=== PATIENT | male | born 1950 | race Caucasian/White ===

== ENCOUNTER 2023-10-28 12:49 | Day surgery (SDC) | payer OTHER, SELFPAY ==
[2023-10-21 07:23] VITALS: BMI 35.2
[2023-10-28] VITALS (13 sets, daily range): BP systolic 113–176; BP diastolic 62–98; PULSE 65–89; RESP 12–17; TEMP 35.9–36.7; O2SAT 93–99; BMI 35.2
--- NOTE | 2023-10-28 | DI.RAD.S_ITS ---
PROCEDURE: XR HIP W PEL IF DONE RT 2V INDICATIONS: POST OP TECHNIQUE: 2 views of the hip were acquired. COMPARISON: [facility], CR, XR HIP W PEL IF DONE RT 2V, 10/28/2023, 16:28. FINDINGS: Bones: Expected appearance of the right hip arthroplasty. Moderate left hip arthrosis also seen. Soft tissues: Vascular calcifications. Postoperative changes. IMPRESSION: Expected postoperative appearance of the right hip arthroplasty. Dictated by: Vick Adam M.D. on 10/28/2023 at 19:33 Approved by: Vick Adam M.D. on 10/28/2023 at 19:34
--- NOTE | 2023-10-28 | DI.RAD.S_ITS ---
PROCEDURE: XR HIP W PEL IF DONE LT 2V INDICATIONS: TOTAL TECHNIQUE: 3 views of the hip were acquired. COMPARISON: [facility], CR, XR PELVIS WITH LATERAL HIP RIGHT, 08/20/2023, 14:59. FINDINGS: Bones: Hip arthroplasty appears to be in appropriate position. Soft tissues: No suspicious calcifications. IMPRESSION: Intraoperative images obtained for hip arthroplasty which appears to be in appropriate position. Please see operative note for full details. Dictated by: Vick Adam M.D. on 10/28/2023 at 18:31 Approved by: Vick Adam M.D. on 10/28/2023 at 18:32
[2023-10-28] MEDS: LACTATED RINGERS 1,000 ML 42 ML IV ×3 (13:52→17:41)
[2023-10-28] MEDS: FAMOTIDINE 20 MG/2 ML VIAL IV (14:20)
[2023-10-28] MEDS: ACETAMINOPHEN 325 MG TABLET 975 MG PO (14:20)
--- NOTE | 2023-10-28 15:05 | PM.PREOP ---
Pre-operative Note Interval Note History & Physical reviewed/Exam performed by Physician: Yes Changes to H&P: No
--- NOTE | 2023-10-28 16:10 | SUR.OPER ---
Supine on padded [place] table with bilateral legs secured in padded positioning boots and suspended in positioning spars, operative leg in traction per surgeon. Head on pillow. EULA ARMS SECURED on padded armboard <90 degrees abduction. Padded perineal post in place per surgeon. CONFIRMED BY DR. LEUNG.
[2023-10-28] MEDS: ALBUMIN HUMAN 12.5 GM/250 ML VIAL IV (16:45)
[2023-10-28] MEDS: ROPIVACAINE/EPI/CLONIDINE/KET 50 ML SYRINGE INJ (16:47)
[2023-10-28] MEDS: TRANEXAMIC ACID 1,000 MG VIAL 2000 MG INJ (16:48)
--- NOTE | 2023-10-28 18:21 | P.OP_ITS ---
Operative Date/Time/Diagnoses Date of procedure: 10/28/23 Pre-op diagnosis: Right hip osteoarthritis Post-op diagnosis: same Procedure & Clinicians Procedure: Right total hip arthroplasty Same procedure as scheduled: Yes Surgeon: Andrea Chavez Children'S Entertainer: Alessandra Mercado Anesthesia Type: Spinal, Sedation and Local Operative Notes Estimated Blood Loss (mL): 500 Procedure in detail: Right Uncemented Direct Anterior Total Hip Arthroplasty: Implants: Right Depuy Total Hip Arthroplasty: * Depuy [place] Gription size 62 cup? * Depuy Actis femoral stem size 9 high offset? * 36 mm +12 ceramic femoral head? Procedure Summary: This 73-year-old male is a muscular 260 lb. His hip exposure was challenging because of his muscular body habitus which necessitated a conjoined tendon release for femoral exposure. I had templated him for a size 64 cup and achieved a good pinch fit with a 61 mm Reamer. I inserted a 62 cup which had a good pinch fit and did not require screws for fixation. While working on the femur I initially placed size 7 broach, which was 1 less than my templated size of 8. As I had been 1 size under on my cup I felt that this was likely accurate and began the trialing process with a standard offset neck and a +5 head. I was physically unable to keep the hip reduced. I could get the head into the socket and it would immediately dislocate unless I internally rotated it to 45?. I obtained x-rays with the hip in this internally rotated position and leg length was approximately appropriate although the lesser trochanter was not visible in the internally rotated position. The broach appeared fluoroscopically appropriate for the canal. Presuming that the inability to reduce the hip was caused by some sort of version issue on the femur I returned to the broaching position. Because of the anterior to posterior fit of the Actis broaches, I felt that achieving maximal fit with the femoral canal would optimize my ability to achieve anatomic version by matching the version of the [place] femur. I therefore removed the size 7 broach, removed bone laterally around the trochanter to ensure there was no impingement on the shoulder of the broach, upsized the broach to a size 8. The size 8 broach sat proud to the point where I had sunk the size 7 broach. I repeated the trialing process with a high offset head and a +8.5 head. With this construct I now was able to keep the hip reduced. I had instability with a 45 degree drop test however. I therefore upsized to a +12 head which removed this instability. At that point in time the hip was stable with 90 ? of external rotation. I returned to the broaching position and noted that there was rotational instability of the size 8 broach within the canal so I upsized to a size 9 broach. This sat slightly proud to the area where I had initially calcar planed with the size 7 broach, in a similar position to where the size 8 broach had been. I placed a 9 high offset stem and a +12 head and reduced the hip. It was stable with a 45 degree drop test, 100 ? of external rotation, and was very slightly long when measuring on an AP fluoroscopic image with a long metal bar to limit any sort of fluoroscopic distortion. The hip had started only 1 mm short and I had discussed with the patient that it was possible I would slightly lengthen his operative leg because of this minimal preoperative limb length discrepancy. Canal fill was appropriate on AP and lateral fluoroscopic images. Procedure in Detail: This patient was seen preoperatively and evaluated for hip pain which was ref ractory to numerous nonoperative treatment modalities. Their hip pain correlated with radiographic changes demonstrating significant degeneration in the hip joint. The risks and benefits of continued nonoperative management versus operative management were discussed at length and all of the patient?s questions were answered. Additional educational materials providing further details beyond our discussion in clinic were provided via a publicly available patient education video which included the incidence of medical complications associated with total hip arthroplasty, reasons for revision following total hip arthroplasty, and patient satisfaction rates following total hip arthroplasty. That video can be accessed at [email or web address] . With this understanding of the risks inherent to the procedure, the patient elected to move forward with operative management. Following preoperative optimization, the patient was scheduled for surgery. The patient was met in the preoperative holding area the day of the procedure and all questions were answered. The patient?s nares were swabbed with betadine in order to decolonize them from MRSA. Informed consent was signed and the operative limb was marked with indelible ink.? The patient was brought back to the operating room where anesthesia was induced. The patient was transferred to the [place] table and all bony prominences were padded. The operative site was prepped and draped in the usual sterile fashion. Prior to incision, tranexamic acid and cefazolin were administered. Operative templating images were displayed demonstrating the anticipated implant sizes and correct operative extremity. A timeout procedure was performed verifying the patient?s identity, medical comorbidities, allergies, relevant medications, anesthesia type and the surgical plan. All present were in agreement. The assistance of a physician assistant real estate manager was required for positioning, room setup, soft tissue retraction and wound closure. Without this assistance, the procedure would have been significantly more challenging and time consuming.?? A direct anterior approach to the hip was utilized. This was performed with a longitudinal incision through a Heuter interval. The incision was planned 2 cm distal and 2 cm lateral to the ASIS extending towards the lateral patella, in line with the muscle body of the TFL. Following incision, the subcutaneous tissue was dissected while taking care to avoid injury to the lateral femoral cutaneous nerve. The fascia overlying the TFL was identified by dissecting off the overlying fat and identifying perforating vessels to the TFL. The TFL fascia was incised and dissected away from the medial border of the TFL. A cobra retractor was placed over the superior femoral neck between the abductors and the hip capsule and used to reflect the TFL laterally. A [place] self-retainer was then placed in the distal aspect of the wound between the TFL and the rectus femoris. This was tensioned to open up the direct anterior interval and the lateral circumflex vessels were identified and coagulated using electrocautery. The floor of the TFL fascia was incised, exposing the pericapsular fat overlying the hip capsule. A second cobra retractor was placed on the inferior femoral neck. A double-bent soft tissue retractor was placed on the anterior wall of the acetabulum and used to tension the reflected head of rectus femoris, which was then released in order to limit soft tissue tension. A capsulotomy was made in the midline of the anterior hip capsule in line with the femoral neck ending at the vastus tubercle. The double-bent retractor was removed in order to limit the amount of time that a soft tissue retractor remained on the anterior wall and protect the femoral nerve. Tag stitches were placed in the superior and inferior leaflets of the hip capsule. An [place] soft tissue retractor was introduced over the tag stitches and tensioned in the interval between the rectus femoris and the TFL in order to retract and protect those muscles. The cobra retractors were replaced intracapsularly, with one over the superior neck in the pocket created by the base of the greater trochanter and the other on the femoral head. The capsulotomy was extended laterally to the base of the greater trochanter and medially to the lesser trochanter. This required externally rotating the hip. Once the lesser trochanter had been identified, a neck cut was planned according to measurements from preoperative templating. A ruler was cut at the length measured between the superior aspect of the lesser trochanter and the collar of the prosthesis. This line was extended towards the inferior aspect of the lateral cobra retractor to plan a cut which would leave minimal residual femoral neck laterally. The neck was cut at 60 degrees of external rotation along that line. A second cut was performed to remove a large napkin ring and facilitate head extraction. The napkin ring cut and femoral head were removed.?? A broad anterior wall retractor was placed between the labrum and the anterior capsule so that the anterior capsule would prevent capturing and pinching the femoral nerve anteriorly. An additional retractor was placed on the posterior wall. External rotation and traction were applied through the [place] table so that the cut surface of the femoral neck would not restrict access to the acetabulum. The labrum was excised sharply and the pulvinar was excised with electrocautery to limit bleeding from branches of the obturator artery. Acetabular reamers were selected based on preoperative templating and measurements of the excised femoral head. These were introduced into the acetabulum. Fluoroscopy was utilized to replicate a standing AP pelvis radiograph by centering over the pelvis, rotating until there was appropriate symmetry between the obturator foramen, and introducing caudal tilt to match the position of the pubic symphysis relative to the sacrococcygeal junction according to the patient?s anatomy. Fluoroscopy was utilized to ensure appropriate reaming depth. Once satisfied with the reaming depth corresponding to the preoperative template and the pinch fit between the columns, an appropriate sized acetabular cup was selected which would provide 1 mm of press-fit. This cup was introduced and manipulated until appropriate abduction and anteversion angles were obtained with careful attention to appropriate abduction and anteversion angles as evaluated by the position of the cup relative to the anterior and posterior joseph of the acetabulum and the AP fluoroscopy which recreated the patient?s standing radiograph. The cup was impacted into place. Peripheral osteophytes were removed. The acetabular liner was then placed with care to ensure locking of the locking mechanism.? Attention was then turned to the femur. All retractors were removed, traction was released, a retractor was placed in the interval between the hip capsule and the gluteus minimus, and the hip was externally rotated to 90 degrees. Traction was applied through the [place] table to tension the lateral capsule and this was released using electrocautery. Traction was released and a [place] hook was placed posteriorly around the proximal femur at the level of the vastus ridge. The table height was lowered in order to restrict the tension on the anterior structures during hip hyperextension to limit the risk of femoral nerve palsy. With traction off and the hip at 90 degrees of external rotation, the hip was hyperextended and adducted while manually elevating the femur away from the acetabulum with the [place] hook to ensure it would not be caught behind the greater trochanter. An asymmetric retractor was placed over the calcar and a broad double-pronged retractor was placed over the greater trochanter. The tag stitch capturing the lateral leaflet of the capsule was moved to the medial side, leaving the conjoined and piriformis tendons isolated in the face of the greater trochanter. The hip was externally rotated and elevated. A release of the conjoined tendon was necessary in order to obtain adequate exposure for broaching. The canal was opened with an opening broach and a rasp was used to remove cancellous bone. A rongeur was used to remove the residual lateral bone at the base of the greater trochanter to avoid placing the stem in varus. The femur was then broached to the appropriate sized stem yielding good rotational fit and fill of the canal as well as appropriate version of the stem trial. Neck and head trials were placed, all retractors were removed and the hip was returned to neutral abduction and extension. I initially placed size 7 broach, which was 1 less than my templated size of 8. As I had been 1 size under on my cup I felt that this was likely accurate and began the trialing process with a standard offset neck and a +5 head. I was physically unable to keep the hip reduced. I could get the head into the socket and it would immediately dislocate unless I internally rotated it to 45?. I obtained x-rays with the hip in this internally rotated position and leg length was approximately appropriate although the lesser trochanter was not visible in the internally rotated position. The broach appeared fluoroscopically appropriate for the canal. Presuming that the inability to reduce the hip was caused by some sort of version issue on the femur I returned to the broaching position. Because of the anterior to posterior fit of the [place] broaches, I felt that achieving maximal fit with the femoral canal would optimize my ability to achieve anatomic version by matching the version of the [place] femur. I therefore removed the size 7 broach, removed bone laterally around the trochanter to ensure there was no impingement on the shoulder of the broach, upsized the broach to a size 8. The size 8 broach sat proud to the point where I had sunk the size 7 broach. I repeated the trialing process with a high offset head and a +8.5 head. With this construct I now was able to keep the hip reduced. I had instability with a 45 degree drop test however. I therefore upsized to a +12 head which removed this instability. At that point in time the hip was stable with 90 ? of external rotation. I returned to the broaching position and noted that there was rotational instability of the size 8 broach within the canal so I upsized to a size 9 broach. This sat slightly proud to the area where I had initially calcar planed with the size 7 broach, in a similar position to where the size 8 broach had been. I placed a 9 high offset stem and a +12 ceramic head on a clean dry trunnion and reduced the hip. It was stable with a 45 degree drop test, 100 ? of external rotation, and was very slightly long when measuring on an AP fluoroscopic image with a long metal bar to limit any sort of fluoroscopic distortion. The hip had started only 1 mm short and I had discussed with the patient that it was possible I would slightly lengthen his operative leg because of this minimal preoperative limb length discrepancy. A dilute mixture of betadine and peroxide was used to bathe the soft tissues during final fluoroscopic assessment. The hip was copiously irrigated with pulse lavage. The capsule was closed with absorbable interrupted suture. The TFL fascia was closed with barbed suture while carefully protecting the lateral femoral cutaneous nerve from entrapment. A mixture of Ropivacaine, Epinephrine, Clonidine and Toradol was infiltrated throughout the soft tissues. The skin was closed with 2-0 and 3-0 sutures. Surgical glue was applied and a soft dressing was placed.??The sponge, instrument and needle counts were reported as being correct at the end of the case.??No obvious complications occurred. The patient was transferred from the [place] table back to a stretcher. The patient emerged from anesthesia without difficulty and was taken to the PACU in a stable condition.? Plan for aftercare: * Anterior hip precautions * Weightbearing as tolerated * Mobilization as soon as the patient has recovered from anesthesia. If physical therapists are unavailable at the time the patient is ready to ambulate, then nursing staff should help patient ambulate * Aspirin 81 twice per day for DVT prophylaxis * Multimodal pain regimen with no IV opioids ordered * Anticipate discharge home tomorrow * Follow up at [facility] in 2 weeks * Detailed postoperative instructions available at [email or web address]
[2023-10-28] MEDS: ACETAMINOPHEN 325 MG TABLET 650 MG PO (20:25)
[2023-10-28] MEDS: IBUPROFEN 600 MG TABLET PO (20:25)
[2023-10-28] MEDS: DOCUSATE 100 MG CAPSULE PO (20:26)
[2023-10-28] MEDS: MELOXICAM 7.5 MG TABLET PO (20:26)
[2023-10-28] MEDS: OXYCODONE IR 5 MG TABLET PO (21:30)
[2023-10-28] MEDS: ASPIRIN EC 81 MG TABLET PO (21:36)
[2023-10-29] MEDS: OXYCODONE IR 5 MG TABLET PO (00:57)
[2023-10-29] MEDS: CEFAZOLIN 2 GM/100 ML PREMIX 100 ML IV ×2 (00:58→09:08)
[2023-10-29] MEDS: LACTATED RINGERS 1,000 ML 100 ML IV (01:04)
[2023-10-29] MEDS: ACETAMINOPHEN 325 MG TABLET 650 MG PO ×2 (02:00→09:08)
[2023-10-29] MEDS: IBUPROFEN 600 MG TABLET PO ×2 (02:00→09:09)
[2023-10-29 03:40] VITALS: BP 138/78; PULSE 74; RESP 16; TEMP 36.7; O2SAT 96
[2023-10-29 04:51] LABS: Hematocrit 34.5 % (41-53); Hemoglobin 12.1 g/dL (13.5-17.5)
--- NOTE | 2023-10-29 07:33 | P.DS_ITS ---
History of Present Illness History of Present Illness Date Patient Seen: 10/29/23 Time Patient Seen: 07:33 Chief complaint: Hip pain Narrative: Hip pain is mild. is home to assist him. Otherwise without complaints. Discharge Providers Provider Discharge Date: 10/29/23 Primary care physician: Rachel Moore MD Consults: 10/28/23 19:47 Consult to Discharge Planning Routine Comment: Consult to Occupational Therapy Evaluate & Treat Comment: Physician Instructions: Evaluate and treat Consult to Physical Therapy Evaluate & Treat Comment: Physician Instructions: post op SHIRLEY protocol Discharge provider: Navin Bean PA-C Summary Hospital Course Discharge Diagnosis: Right hip osteoarthritis Hospital Course: Right total hip arthroplasty Same procedure as scheduled: Yes Surgeon: Andrea Chavez Combination Machine Tool Operator: Alessandra Mercado Anesthesia Type: Spinal, Sedation and Local Operative Notes Estimated Blood Loss (mL): 500 Procedure in detail: Right Uncemented Direct Anterior Total Hip Arthroplasty: Implants: Right Depuy Total Hip Arthroplasty: * Depuy [place] Gription size 62 cup? * Depuy Actis femoral stem size 9 high offset? * 36 mm +12 ceramic femoral head? Patient admitted for right total hip arthroplasty. Patient consented to the same. Patient underwent right total hip arthroplasty October 28, 2023. Patient notes pain is mild. Has his home to assist him. Be discharged home today after physical therapy if safe for home environment Status at Discharge Cognitive/behavioral status at discharge: oriented Functional status at discharge: uses cane/walker Overall status at discharge: patient is progressing back to baseline Exam Vital Signs (past 8 hours): - 10/29/23 03:40 Temperature 98.0 F Pulse Rate 74 Respiratory Rate 16 Blood Pressure 138/78 Pulse Oximetry 96 Oxygen Flow Rate 0 Oxygen Delivery Method Room Air Oxygen Flow Rate 0 Narrative Exam Narrative: 73-year-old male resting comfortably in bed in no apparent distress. Dressing is clean, dry and intact. Motor functions intact distal bilateral lower extremities. Sensation grossly intact to light touch bilateral lower extremities. Const General: cooperative and comfortable Nutritional Appearance: average body habitus Orientation: alert Objective Labs 10/29/23 04:30 Labs: Laboratory Results - last 24 hr 10/29/23 04:30 Hgb 12.1 L Hct 34.5 L PFSH Medical History History of ETOH abuse Psoriasis Left ear hearing loss Anxiety Thrombocytopenia Macrocytosis Low vitamin D level Subclinical hypothyroidism Osteoarthritis Fatty liver Elevated bilirubin Elevated AST (SGOT) PVCs (premature ventricular contractions) HTN (hypertension) RBBB (right bundle branch block) Surgical History Hx of hernia repair History of surgery (2012) Social History household members: spouse Smoking Status: Former smoker alcohol intake: current Discharge Assessment & Plan Assessment and Plan Assessment: Patient progressing as expected status post right total hip arthroplasty Plan of Treatment: Multimodal pain management Aspirin 81 mg b.i.d. for DVT prophylaxis Anterior hip precautions, weight-bearing as tolerated Discharged home today after physical therapy if safe for home environment Discharge Plan Discharge orders & Medications Discharge Orders: Discharge (Order); Ordered 10/29/23 Ordered By: Navin Bean Prescriptions: New acetaminophen 325 mg Tablet 650 mg PO Q6H Qty: 60 0RF polyethylene glycol 3350 17 gram Powder In Packet 17 gm PO DAILY PRN (Reason: Constipation) Qty: 10 0RF aspirin 81 mg Tablet,Delayed Release (Dr/Ec) 81 mg PO BID Qty: 60 0RF ibuprofen 600 mg Tablet 600 mg PO Q6H Qty: 90 0RF Continued ondansetron HCl 4 mg tablet 4 mg PO Q8H PRN (Reason: nausea) tramadol 50 mg tablet 50 mg PO Q6H PRN (Reason: pain) Discontinued aspirin 325 mg Capsule 325 mg PO DAILY PRN (Reason: Pain) meloxicam 7.5 mg tablet 7.5 mg PO BID Follow up/Referrals: Rachel Moore MD [Primary Care Provider] - Andrea Chavez MD [Physician] - (2 weeks as scheduled) Diet/Activity/Treatments Diet: Diet as Tolerated Activity: Weight-bearing as tolerated, anterior hip precautions Other treatments: [email or web address] Skin/Wound/Dressing Care Report to your healthcare provider any signs of infection, such as:: chills, fever, night sweats, increased pain, unusual drainage and unusual redness Dressing: Keep dressing clean and dry Visit Report/Discharge Packet Instructions: DI for Hip Replacement, DI for Prescription Opioid Use Stand Alone Forms: Patient Portal/API, Surgery Discharge Discharge Data Primary Care Provider: Rachel Moore Attending Provider: Andrea Chavez
[2023-10-29 08:59] VITALS: PULSE 87; RESP 16; O2SAT 96
[2023-10-29] MEDS: ASPIRIN EC 81 MG TABLET PO (09:08)
[2023-10-29] MEDS: DOCUSATE 100 MG CAPSULE PO (09:08)
[2023-10-29 10:16] VITALS: BP 148/78; PULSE 82; RESP 16; TEMP 36.6; O2SAT 98
--- NOTE | 2023-10-29 10:34 | OT.IP.EVAL ---
Current Diagnoses Unilateral primary osteoarthritis, right hip (10/28/23) Surgery Performed Operation Date: 10/28/23 14:45 Actual Procedures p Total Hip Arthroplasty/Anterior Approach(Right) - Andrea Chavez MD Past Medical History (Last Reviewed 10/29/23 @ 07:35 by Navin Bean PA-C) Anxiety Elevated AST (SGOT) Elevated bilirubin Fatty liver History of ETOH abuse HTN (hypertension) Left ear hearing loss Low vitamin D level Macrocytosis Osteoarthritis Psoriasis PVCs (premature ventricular contractions) RBBB (right bundle branch block) Subclinical hypothyroidism Thrombocytopenia Surgical History (Last Reviewed 10/29/23 @ 07:35 by Navin Bean PA-C) History of surgery (2012) Hx of hernia repair Occupational Therapy Inpatient Evaluation/Re-Eval M1 PT/OT-IP Prior Functional Status Start: 10/29/23 11:17 Freq: NEEDED Status: Active Protocol: Document 10/29/23 11:20 [facility] (Rec: 10/29/23 11:33 [facility] [id number]) Medical Review Prior Functional Status Medical History Reviewed Yes Communication Independent Mobility and Gait Pt states his walking was limited due to his pain, pt did not use a device. Activities of Daily Living and IADL's Pt needing assist from his for shoes and socks. Social History Household Members spouse Living Arrangements House Number of Floors (Floors) 3 or More Floors Number of Stairs To Enter/Railing? 2 steps with no rail to enter. Pt has 13 steps with rail to get to the second floor. Home Environment Standard Height Toilet,Walk in Shower Home Equipment Front Wheel Walker,Straight Cane,Raised Toilet Seat w/ Armrests,Hand Held Shower M2 OT-IP Current Condition Start: 10/29/23 11:17 Freq: Status: Active Protocol: Document 10/29/23 11:20 [facility] (Rec: 10/29/23 11:33 [facility] [id number]) Occupational Therapy Current Condition Current Condition Evaluation Date 10/29/23 Treatment Diagnosis S/P R SHIRLEY anterior approach Diagnosis Onset Date 10/28/23 Post Operative Precautions Anterior Hip Precautions No Hip Extension,No Hip External Rotation M3 OT- IP Subjective and Pain Start: 10/29/23 11:17 Freq: Status: Active Protocol: Document 10/29/23 11:20 [facility] (Rec: 10/29/23 11:33 [facility] [id number]) OT- Subjective Occupational Therapy Visit Type Type Initial Evaluation Visit Start Time 09:54 Visit Stop Time 10:34 Occupational Therapy Visit Comments Patient Comments Pt wanting to get dressed. Patient/Caregiver Goals TO go home. OT Pain Assessment Pain When Pain Assessed During Mobility Pain Present Pain Present Pain Reported Location Back Intensity 2 Scale Used Numeric (0 - 10) M4 OT- IP ADL's Start: 10/29/23 11:17 Freq: Status: Active Protocol: Document 10/29/23 11:20 [facility] (Rec: 10/29/23 11:33 [facility] [id number]) OT [id number] General Evaluation Self-Feeding Ability Independent OT ADL-Grooming Comments OT Grooming Comments Pt refused. OT ADL-Oral Care Comments Oral Care Comments Pt refused. OT ADL-Dressing General Eval Lower Body Dressing Ability Minimal Assistance,Maximum Assistance Areas Needing Assistance Socks,Shoes Comments OT Dressing Comments Able to have pt use income tax adjuster and sock aid to assist for LB dressing needs. Also educated pt to be mindful of his RLE positioning during ADL needs. Educated best to sit to initiate getting clothing over his feet/legs. Educated while standing to hold the walker with one hand and assist to get dressed with the other hand while pulling up clothing items over his hips. OT ADL-Toileting Comments OT Toileting Comments Pt will benefit from a BSC at home for safety and increased ease to assist to stand. OT ADL-Bathing Comments OT Bathing Comments Pt would benefit from a shower chair. M5 OT- IP IADL's Start: 10/29/23 11:17 Freq: Status: Active Protocol: Document 10/29/23 11:20 [facility] (Rec: 10/29/23 11:33 [facility] [id number]) OT-Instrumental Activities of Daily Living Deficits IADL Deficits Identified Deficits Home Safety Awareness Awareness of Need for Assistance at Home Good Awareness Ability to Problem Solve Emergency Able to Problem Solve Situations Medication Management Medication Management Comments Educated pt to double check or have his assist if able - as pt states feels a little groggy from surgery yet. Money Management Money Management Comments Educated pt to double check or have his assist if able - as pt states feels a little groggy from surgery yet. Meal Preparation Meal Preparation Caregiver Provides Assist Rocket Engine Tester Rocket Engine Tester Caregiver Provides Assist M6 OT- IP Functional Cognition Start: 10/29/23 11:17 Freq: Status: Active Protocol: Document 10/29/23 11:20 [facility] (Rec: 10/29/23 11:33 [facility] [id number]) Cognitive Factors Limiting Selfcare Function Cognitive Ability Level of Alertness Alert Patient Orientation Name,Age,Birthday,Month,Date, Year,Day of Week,Place, Situation Attention Span Ability Capable of Focused Attention, Capable of Sustained Attention Ability to Follow Commands Able to Follow One Step Commands Cognitive Comments Cognitive Assessment Comments Pt able to follow his hip precautions for ADl and mobility needs with good understanding. OT- Vision and Hearing OT- Hearing Assessment OT- Hearing Assessment WFL OT- Vision Assessment Visual Acuity Glasses For Reading Visual Attentiveness WFL Occular Pursuits WFL M7 OT- IP Mobility and Balance Start: 10/29/23 11:17 Freq: Status: Active Protocol: Document 10/29/23 11:20 [facility] (Rec: 10/29/23 11:33 [facility] [id number]) OT-Transfer Assessment Sit to and From Stand Sit to and from Stand Standby Assistance Comments Mobility Comments Pt able to stand on his own from the recliner while getting dressing. OT- Balance Assessment Sitting Balance and Reactions Static Sitting Balance Ability Normal Dynamic Sitting Balance Ability Good Standing Balance and Reactions Static Standing Balance Ability Good M8 OT- IP Objective Assessments Start: 10/29/23 11:17 Freq: Status: Active Protocol: Document 10/29/23 11:20 [facility] (Rec: 10/29/23 11:33 [facility] [id number]) OT Gross Range of Motion Upper Extremity Range of Motion Assessment Within Functional Limits OT Strength Upper Extremity Strength Assessment Within Functional Limits M9 OT- IP Assessment and Plan Start: 10/29/23 11:17 Freq: Status: Active Protocol: Document 10/29/23 11:20 [facility] (Rec: 10/29/23 11:33 [facility] [id number]) OT Summary Assessment and Plan Potential Rehabilitation Potential Excellent Analytic Complexity at Evaluation Low Summary OT Impairments Pain,Strength,Balance, Functional Mobility,Dressing, Toileting,Bathing,Toilet Transfers,Shower Transfers Progress Towards Goals Progressing Toward Goals Assessment Summary Pt low complexity and doing well and able to get dressing with use of LB dressing equipment to assist. Also suggested pt get a BSC to assist to come to stand. Pt looking to go home today and go to outpt PT. Goals Dressing Goal Independent,Maintenance Groundskeeper,Sock Aid Toileting Goal Independent Bathing Goal Standby Assistance Toilet Transfer Goal Independent Shower Transfer Goal Independent Days to Meet Goals 3 Frequency of Treatment Frequency Of Treatment Once a Day Treatment Plan OT Treatment Plan ADL Training,Functional Mobility,Patient/Family Education,Discharge Planning Discharge Recommendations OT Discharge Recommendations Home with Assistance, Outpatient PT Home Equipment Needs BSC, income tax adjuster, sock aid Transportation Needs at Discharge Private Vehicle
--- NOTE | 2023-10-29 11:55 | PT.IIE ---
Current Diagnoses Unilateral primary osteoarthritis, right hip (10/28/23) Surgery Performed Operation Date: 10/28/23 14:45 Actual Procedures p Total Hip Arthroplasty/Anterior Approach(Right) - Andrea Chavez MD Surgical History (Last Reviewed 10/29/23 @ 07:35 by Navin Bean PA-C) History of surgery (2012) Hx of hernia repair Medical History (Last Reviewed 10/29/23 @ 07:35 by Navin Bean PA-C) Anxiety Elevated AST (SGOT) Elevated bilirubin Fatty liver History of ETOH abuse HTN (hypertension) Left ear hearing loss Low vitamin D level Macrocytosis Osteoarthritis Psoriasis PVCs (premature ventricular contractions) RBBB (right bundle branch block) Subclinical hypothyroidism Thrombocytopenia Physical Therapy Inpatient Evaluation/Re-Eval M1 PT/OT-IP Prior Functional Status Start: 10/29/23 11:17 Freq: NEEDED Status: Active Protocol: Document 10/29/23 11:55 [facility] (Rec: 10/29/23 13:10 [facility] [id number]) Medical Review Prior Functional Status Medical History Reviewed Yes Diet/Fluid Consistency Regular Communication Independent Mobility and Gait Pt states his walking was limited due to his pain, pt did not use a device. Activities of Daily Living and IADL's Pt needing assist from his for shoes and socks. Prior Functional Level (Other details) He attended out-pt PT before having surgery. Social History Household Members spouse Living Arrangements House Number of Floors (Floors) 3 or More Floors Number of Stairs To Enter/Railing? 2 steps with no rail to enter. Pt has 13 steps with rail to get to the second floor. Home Environment Standard Height Toilet,Walk in Shower Home Equipment Front Wheel Walker,Straight Cane,Raised Toilet Seat w/ Armrests,Hand Held Shower Employment Status Retired Additional Social History Comment He has a 3-story house with 13 steps between each level. He plans to stay on the second floor after surgery. M2 PT-IP Current Condition Start: 10/29/23 12:30 Freq: NEEDED Status: Active Protocol: Document 10/29/23 11:55 [facility] (Rec: 10/29/23 13:10 [facility] [id number]) Physical Therapy Current Condition Current Condition Evaluation Date 10/29/23 Treatment Diagnosis right total hip arthroplasty with anterior approach Onset Date 10/28/23 M3 PT-IP Subjective Start: 10/29/23 12:30 Freq: NEEDED Status: Active Protocol: Document 10/29/23 11:55 [facility] (Rec: 10/29/23 13:10 [facility] [id number]) Subjective Physical Therapy Visit Type Type Initial Evaluation Visit Start Time 09:15 Visit Stop Time 10:00 Notes also seen 11:25-11:55 to complete stair training Number of EMBROIDERY SUPERVISOR Visits 0 Physical Therapy Visit Comments Patient Comments He has not talked to his yet today. He wants to be able to go home today. He describes soreness in right hip area and his low back. He has an ice machine for home use and has out-pt PT set up after discharge. Patient Goals Discharge home with his Therapy Pain Assessment Pain When Pain Assessed During Mobility Pain Present Pain Present Pain Reported Location Back Intensity 3 Scale Used Numeric (0 - 10) Description Aching,Tender,With Movement Pain Behaviors Facial Grimacing,Guarding Pain Management Techniques Re-positioning,Timing of Activity with Medications rt hip Intensity 3 Scale Used Numeric (0 - 10) Description Aching,Tender,With Movement Pain Behaviors Facial Grimacing,Guarding Pain Management Techniques Apply Cold,Elevation,Re- positioning,Timing of Activity with Medications M4 PT-IP Mobility and Gait Start: 10/29/23 12:30 Freq: NEEDED Status: Active Protocol: Document 10/29/23 11:55 [facility] (Rec: 10/29/23 13:10 [facility] [id number]) PT-Bed Mobility Assessment Supine to Sit Supine to Sit Independent Sit to Supine Sit to Supine Independent Scooting Scooting to Edge of Bed Independent Scooting Up and Down in Bed Independent PT-Transfer Assessment Sit to and From Stand Sit to and from Stand Independent,Use of Upper Extremities Equipment Transfer Assistive Device Gait Belt,Front Wheeled Walker Transfers Transfer Destination Chair Transfer Technique Stand Step Pivot Transfer Ability Level of Assist Standby Assistance,Use of Upper Extremities Comments Mobility Comments Pt needs UE's to assist right LE into bed. He is dependent on UE's for sit-stand to the FWW. He tends to forget to push up with his UE's instead of hands on FWW but he can self-correct. Pt up to recliner this morning. Gait Assessment Gait Gait Assistance Required: Standby Assistance Distance (Feet) 70 Able to Maintain Weight Bearing Status Yes During Gait Assistive Devices Assistive Device Gait Belt,Front Wheeled Walker Gait Deviations General Gait Pattern Antalgic,Decreased Stride Length,Flexed Trunk Factors Limiting Gait Function Factors Limiting Gait Function Decreased Activity Tolerance, Decreased Strength,Limited Range of Motion,Pain,Poor Balance Comments Gait Comments He has flexed posture over the FWW, educated pt in safe use of the FWW. Pt on IV Antibiotics earlier this AM so returned later in the morning to complete stair training. Stair Climbing Assessment Evaluation Level of Assist On Stairs Standby Assistance Devices Stair Climbing Assistive Devices Straight Cane,Left Railing Technique/Endurance Stair Climbing Direction Ascend and Descend Stair Climbing Technique Step to Step Number of Steps Climbed 3 Query Text: Stair Climbing Set # Repetitions (reps) 2 Comments Stair Climbing Comments pt shows safe pattern on the stairs, he reports using a step-to pattern at home PT-Balance Assessment Sitting Balance and Reactions Static Sitting Balance Ability Good Dynamic Sitting Balance Ability Good Standing Balance and Reactions Static Standing Balance Ability Good Dynamic Standing Balance Ability Good Device Used FWW M5 PT-IP Objective Assessments Start: 10/29/23 12:30 Freq: NEEDED Status: Active Protocol: Document 10/29/23 11:55 [facility] (Rec: 10/29/23 13:10 [facility] [id number]) Orientation Orientation/Cognition Level of Alertness Alert Orientation Name,Age,Birthday,Month,Date, Year,Day of Week,Place, Situation Language Function Ability Hard of Hearing Safety Awareness Understands Safety Issues Memory Description No Deficits Noted Comments left hearing loss Gross Range of Motion Upper Extremity ROM Assessment Within Functional Limits Lower Extremity ROM Assessment Right Impaired Impairments anterior hip post-op precautions Strength Upper Extremity Strength Assessment Within Functional Limits Lower Extremity Strength Assessment Right Impaired Hip flex 3-/5 Knee ext 4-/5, flex 4/5 Ankle DF 5/5 Comments Strength Comments pain right hip after surgery Coordination Assessment Gross Coordination Gross Coordination WNL Sensation Assessment Sensation Gross Sensation WNL Muscle Tone Muscle Tone WNL Yes M6 PT-IP Treatment Start: 10/29/23 12:30 Freq: NEEDED Status: Active Protocol: Document 10/29/23 11:55 [facility] (Rec: 10/29/23 13:10 [facility] [id number]) Physical Therapy Treatment Exercises Exercises Ankle Pumps,Gluteal Sets,Quad Sets,Heel Slides Education Education Provided Precautions,Weight Bearing Status,Post-Op Packet,Safety M7 PT-IP Assessment and Plan Start: 10/29/23 12:30 Freq: NEEDED Status: Active Protocol: Document 10/29/23 11:55 [facility] (Rec: 10/29/23 13:10 [facility] [id number]) PT Summary Assessment and Plan Potential Rehabilitation Potential Good Status of Condition at Evaluation Evolving Summary Impairments Pain,ROM,Strength,Balance,Bed Mobility,Transfers,Gait, Activity Tolerance Progress Towards Goals Safe For Discharge Assessment Summary Aleksandr is progressing well post-op day one. He reports good pain control right hip s/ p SHIRLEY. He is able to demonstrate safe use of FWW for gait. He is able to go up/ down stairs safely. Educated pt in his hip precautions and home exercise program. He reports having a supportive at home but she is not present for therapy this morning. Pt appears safe to discharge home when he is medically cleared. Notified his nurse. Will plan for discharge home with out-pt PT. Frequency of Treatment Frequency Of Treatment Discharge Treatment Plan Other Recommendations and Next Treatment training completed this visit, Focus cleared for discharge home Precautions Anterior Hip Precautions No Hip Extension,No Hip External Rotation Weight Bearing Status Weight Bearing Status Weight Bear as Tolerated Recommendations To Nursing Amount of Assist Needed Standby Assistance Discharge Recommendations PT Discharge Recommendations Home with Assistance, Outpatient PT Transportation Needs at Discharge Private Vehicle
--- NOTE | 2023-10-29 13:23 | PC.NURSE ---
Day shift: Paperwork signed and all questions answered. Pt has all personal belongings. scripts sent electronic to Pt' pharmacy. Pt left unit via WC at approx 1310. Taken by this sba underwriter. Pt did have some difficulty getting into pic-up truck and when Pt was lifting his rt leg into the truck there was a small audible pop similar to someone cracking a knuckle. Pt stated that it did hurt. Pt told that should get x-ray in the ED. Pt said he wanted to go home anyway. Pt said hip was sore but he would be ok. Pt's S.O. in room for teachings. She could not remember where she parked. Pt was also forgetful today in the room.
== END 2023-10-29 13:34 | disposition home or self-care (01) ==
LOC: OR 12:52 → AC 12:53
PROVIDERS: PCP Internal Medicine; Referring Provider Orthopaedic Surgery Adult Reconstructive Orthopaedic Surgery; Visit Provider Orthopaedic Surgery Adult Reconstructive Orthopaedic Surgery
PROC: (CPT 27130; principal; 2023-10-28 14:45)
DX: M16.11 Unilateral primary osteoarthritis, right hip (principal)
CPT/HCPCS: 27130; 36415; 73502; 76000; 85014; 85018; 97110; 97116; 97162; 97165; 97530; 97535; C1776; J0690; J1100; J2250; J2405; J2704; J3010; J3490; P9045